=== PATIENT | female | born 1930 | race Caucasian/White ===

== ENCOUNTER 2018-01-19 03:09 | Inpatient (IN) ==
[2018-01-19] MEDS ORDERED: Heparin 10,000 UNITS/10 ML Vial (for IV use) IV.PUSH STA (03:56)
[2018-01-19] MEDS ORDERED: Metoprolol Tartrate 50 MG Tablet PO ONE (03:56)
--- NOTE | 2018-01-19 04:05 | XR ---
EXAM DATE: 01/19/2018 3:47 AM EST AGE/SEX: 87 years / Female INDICATIONS: Chest pain starting today CLINICAL DATA: This is the patient's initial encounter. Patient reports that signs and symptoms have been present for 1 day and indicates a pain score of 8/10. MEDICAL/SURGICAL HISTORY: None. None. COMPARISON: No prior exams available for comparison. FINDINGS: Portable AP view of the chest demonstrates a normal-sized cardiac silhouette with calcification of th e aorta. Lungs are underinflated. No effusion, consolidation, or pneumothorax is present. There is sy mmetric mild biapical scar. The bones and soft tissues demonstrate no acute finding. Bones are under mineralized. CONCLUSION: No acute cardiopulmonary abnormality is identified. Electronically signed by: Calderon Perez MD 01/19/2018 4:04 AM EST
--- NOTE | 2018-01-19 04:08 | ED ---
HPI General Chief complaint: Chest Pain Stated complaint: Left Flank Pain Time Seen by Provider: 01/19/18 03:16 Source: patient Mode of arrival: EMS Limitations: no limitations History of Present Illness HPI narrative: 87-year-old female came to the emergency room brought in by EMS for left-sided pain. When I asked the patient she said that she has been unable to sleep because of the pain and she pointed to the left side of her chest and said that it radiates down her left arm. Patient is in pain currently. She seems uncomfortable. Vital signs were relatively stable. No history of nausea vomiting. No history of diaphoresis, shortness of breath or syncopal episode. Patient is not the best historian and is difficult to get too much of detailed history from her like the exact time of onset and aggravating or relieving symptoms. Related Data Home Medications Medication Instructions Recorded Confirmed aspirin 81 mg PO DAILY 01/19/18 01/19/18 metoprolol succinate 12.5 mg PO BID 01/19/18 01/19/18 olopatadine 1 drp OPHTHALMIC (EYE) BID 01/19/18 01/19/18 sennosides [Senexon] 8.6 mg PO BID 01/19/18 01/19/18 Previous Rx's Medication Instructions Recorded Lactobacillus acidophilus 500 mmu cells PO TID #14 cap 01/22/18 atorvastatin [Lipitor] 10 mg PO DAILY #30 tab 01/22/18 cefdinir 300 mg PO BID 4 Days #8 cap 01/22/18 Allergies Allergy/AdvReac Type Severity Reaction Status Date / Time No Known Allergies Allergy Verified 01/19/18 03:12 Review of Systems ROS: all other systems reviewed are negative [facility] Medical History Medical History Broken hip (Acute) Medical history unknown (Acute) Surgical history unknown (Acute) Social History Social History Substance History: No History of Abuse Second Hand Smoke Exposure: No Smoking Status: Never smoker How Often Do You Have a Drink Containing Alcohol: Never Recent Travel in [facility] within the Last 8 Weeks: No Recent Out of Country Travel within the Last 8 Weeks: No Immunization History Tetanus Immunization: >5 Years Exam Narrative Exam Narrative: GENERAL: Awake, alert, anxious, moderate distress, elderly and frail SKIN: Focused skin assessment warm/dry. HEAD: Atraumatic. Normocephalic. EYES: Pupils equal and round. No scleral icterus. No injection or drainage. Bilateral medial [place] ectropion ENT: No nasal bleeding or discharge. Mucous membranes pink and moist. NECK: Trachea midline. No JVD. CARDIOVASCULAR: Regular rate and rhythm. No murmur appreciated. RESPIRATORY: No accessory muscle use. Clear to auscultation. Breath sounds equal bilaterally. GASTROINTESTINAL: Abdomen soft, non-tender, nondistended. Hepatic and splenic margins not palpable. MUSCULOSKELETAL: No obvious deformities. No clubbing. No cyanosis. No edema. NEUROLOGICAL: Awake and alert. No obvious cranial nerve deficits. Motor grossly within normal limits. Normal speech. PSYCHIATRIC: Appropriate mood and affect; insight and judgment normal. Course Initial Documented Vital Signs Temperature 99.3 F 01/19/18 03:12 Pulse Rate 98 H 01/19/18 03:12 Respiratory Rate 16 01/19/18 03:12 Blood Pressure 115/74 01/19/18 03:12 Pulse Oximetry 98 01/19/18 03:12 Last Documented Vital Signs Temperature 98.5 F 01/22/18 11:04 Pulse Rate 70 01/22/18 11:04 Respiratory Rate 18 01/22/18 11:04 Blood Pressure 133/70 01/22/18 11:04 Pulse Oximetry 97 01/22/18 11:04 Medical Decision Making MDM Narrative Medical decision making narrative: 4:05 AM I discussed case with Dr. Carmona since the EKG looked abnormal to me. However as per Dr. Carmona not to call a STEMI alert but to go ahead and start the patient on heparin drip and bolus. He also wanted p.o. beta-mamie and aspirin. Nitro was not given to the patient says the blood pressure is 111/60. He wants the patient to be transferred to the main hospital. Waiting for the blood test results. 5 AM blood test results are back and d-dimer is elevated. The troponin is within acceptable limits. Patient has been heparinized with a bolus that should cover for a possible PE. UA suggestive of a UTI and patient has been given IV Rocephin. I discussed the case with the hospitalist JEF. Patient will be transferred to the main hospital. Medical Screen Exam Complete: Yes Emergency Medical Condition: Yes Lab Data Result diagrams: 01/22/18 04:17 01/20/18 05:51 Lab Results 01/19/18 01/19/18 01/19/18 Range/Units 04:00 04:00 04:00 CBC w Diff Auto diff final WBC 5.9 (4.0-11.0) th/mm3 RBC 3.97 L (4.00-5.30) mil/mm3 Hgb 11.8 (11.6-15.3) gm/dL Hct 36.2 (35.0-46.0) % MCV 91.0 (80.0-100.0) fL MCH 29.7 (27.0-34.0) pg MCHC 32.7 (32.0-36.0) % RDW 13.8 (11.6-17.2) % Plt Count 192 (150-450) th/mm3 MPV 7.9 (7.0-11.0) fL Neut % (Auto) 74.0 H (16.0-70.0) % Lymph % (Auto) 15.5 (9.0-44.0) % [place] % (Auto) 9.4 H (0.0-8.0) % Eos % (Auto) 0.6 (0.0-4.0) % Baso % (Auto) 0.5 (0.0-2.0) % Neut # (Auto) 4.4 (1.8-7.7) th/mm3 Lymph # (Auto) 0.9 L (1.0-4.8) th/mm3 [place] # (Auto) 0.6 (0.0-0.9) th/mm3 Eos # (Auto) 0.0 (0.0-0.4) th/mm3 Baso # (Auto) 0.0 (0.0-0.2) th/mm3 WBC Differential . Differential Comment . PT (9.8-11.6) sec INR Ratio APTT (23.4-31.7) sec D-Dimer Quant (PE/DVT) 2.09 H (0.00-0.50) mg/L FEU Sodium 141 (136-145) meq/L Potassium 4.0 (3.5-5.1) meq/L Chloride 107 (98-107) meq/L Carbon Dioxide 29.0 (21.0-32.0) meq/L Anion Gap 5 (5-15) meq/L BUN 15 (7-18) mg/dL Creatinine 0.54 (0.50-1.00) mg/dL Estimated GFR Greater than 89 (>89) mL/min Random Glucose 101 (74-106) mg/dL Calcium 8.6 (8.5-10.1) mg/dL Total Bilirubin 0.6 (0.2-1.0) mg/dL AST 18 (15-37) U/L ALT 14 (10-53) U/L Alkaline Phosphatase 83 (45-117) U/L Total Creatine Kinase (26-192) U/L Troponin I Less than 0.02 L (0.02-0.05) ng/mL Total Protein 6.5 (6.4-8.2) g/dL Albumin 2.9 L (3.4-5.0) g/dL Urine Color (Yellw/Straw) Urine Clarity (Clear) Urine pH (5.0-8.5) Ur Specific [place] (1.002-1.035) Urine Protein (Neg-Trace) mg/dL Urine Glucose (UA) (Negative) mg/dL Urine Ketones (Negative) mg/dL Urine Occult Blood (Negative) Urine Nitrate (Negative) Urine Bilirubin (Negative) Urine Urobilinogen (Less than 2) mg/dL Ur Leukocyte Esterase (Negative) Urine RBC (0-3) /hpf Urine WBC (0-5) /hpf Urine WBC Clumps (None) Ur Squamous Epith Cells (0-5) /hpf Amorphous Sediment (None) /hpf Urine Bacteria (None) /hpf Micro UA Comment Ur Microscopic Review 01/19/18 01/19/18 01/19/18 Range/Units 04:00 04:29 10:38 CBC w Diff WBC (4.0-11.0) th/mm3 RBC (4.00-5.30) mil/mm3 Hgb (11.6-15.3) gm/dL Hct (35.0-46.0) % MCV (80.0-100.0) fL MCH (27.0-34.0) pg MCHC (32.0-36.0) % RDW (11.6-17.2) % Plt Count (150-450) th/mm3 MPV (7.0-11.0) fL Neut % (Auto) (16.0-70.0) % Lymph % (Auto) (9.0-44.0) % [place] % (Auto) (0.0-8.0) % Eos % (Auto) (0.0-4.0) % Baso % (Auto) (0.0-2.0) % Neut # (Auto) (1.8-7.7) th/mm3 Lymph # (Auto) (1.0-4.8) th/mm3 [place] # (Auto) (0.0-0.9) th/mm3 Eos # (Auto) (0.0-0.4) th/mm3 Baso # (Auto) (0.0-0.2) th/mm3 WBC Differential Differential Comment PT 10.2 (9.8-11.6) sec INR 1.0 Ratio APTT 29.7 (23.4-31.7) sec D-Dimer Quant (PE/DVT) (0.00-0.50) mg/L FEU Sodium (136-145) meq/L Potassium (3.5-5.1) meq/L Chloride (98-107) meq/L Carbon Dioxide (21.0-32.0) meq/L Anion Gap (5-15) meq/L BUN (7-18) mg/dL Creatinine (0.50-1.00) mg/dL Estimated GFR (>89) mL/min Random Glucose (74-106) mg/dL Calcium (8.5-10.1) mg/dL Total Bilirubin (0.2-1.0) mg/dL AST (15-37) U/L ALT (10-53) U/L Alkaline Phosphatase (45-117) U/L Total Creatine Kinase 54 (26-192) U/L Troponin I Less than 0.02 L (0.02-0.05) ng/mL Total Protein (6.4-8.2) g/dL Albumin (3.4-5.0) g/dL Urine Color Yellow (Yellw/Straw) Urine Clarity Clear (Clear) Urine pH 6.0 (5.0-8.5) Ur Specific [place] 1.020 (1.002-1.035) Urine Protein Negative (Neg-Trace) mg/dL Urine Glucose (UA) Negative (Negative) mg/dL Urine Ketones Negative (Negative) mg/dL Urine Occult Blood Trace (Negative) Urine Nitrate Negative (Negative) Urine Bilirubin Negative (Negative) Urine Urobilinogen 0.2 (Less than 2) mg/dL Ur Leukocyte Esterase Moderate H (Negative) Urine RBC 0-3 (0-3) /hpf Urine WBC 9-20 H (0-5) /hpf Urine WBC Clumps Few H (None) Ur Squamous Epith Cells 0-5 (0-5) /hpf Amorphous Sediment Moderate H (None) /hpf Urine Bacteria Occasional H (None) /hpf Micro UA Comment Cath-culture ind Ur Microscopic Review Microscopic reviewed 01/19/18 01/19/18 01/19/18 Range/Units 10:38 16:55 16:55 CBC w Diff WBC (4.0-11.0) th/mm3 RBC (4.00-5.30) mil/mm3 Hgb (11.6-15.3) gm/dL Hct (35.0-46.0) % MCV (80.0-100.0) fL MCH (27.0-34.0) pg MCHC (32.0-36.0) % RDW (11.6-17.2) % Plt Count (150-450) th/mm3 MPV (7.0-11.0) fL Neut % (Auto) (16.0-70.0) % Lymph % (Auto) (9.0-44.0) % [place] % (Auto) (0.0-8.0) % Eos % (Auto) (0.0-4.0) % Baso % (Auto) (0.0-2.0) % Neut # (Auto) (1.8-7.7) th/mm3 Lymph # (Auto) (1.0-4.8) th/mm3 [place] # (Auto) (0.0-0.9) th/mm3 Eos # (Auto) (0.0-0.4) th/mm3 Baso # (Auto) (0.0-0.2) th/mm3 WBC Differential Differential Comment PT (9.8-11.6) sec INR Ratio APTT 65.0 H D 67.1 H (23.4-31.7) sec D-Dimer Quant (PE/DVT) (0.00-0.50) mg/L FEU Sodium (136-145) meq/L Potassium (3.5-5.1) meq/L Chloride (98-107) meq/L Carbon Dioxide (21.0-32.0) meq/L Anion Gap (5-15) meq/L BUN (7-18) mg/dL Creatinine (0.50-1.00) mg/dL Estimated GFR (>89) mL/min Random Glucose (74-106) mg/dL Calcium (8.5-10.1) mg/dL Total Bilirubin (0.2-1.0) mg/dL AST (15-37) U/L ALT (10-53) U/L Alkaline Phosphatase (45-117) U/L Total Creatine Kinase (26-192) U/L Troponin I Less than 0.02 L (0.02-0.05) ng/mL Total Protein (6.4-8.2) g/dL Albumin (3.4-5.0) g/dL Urine Color (Yellw/Straw) Urine Clarity (Clear) Urine pH (5.0-8.5) Ur Specific [place] (1.002-1.035) Urine Protein (Neg-Trace) mg/dL Urine Glucose (UA) (Negative) mg/dL Urine Ketones (Negative) mg/dL Urine Occult Blood (Negative) Urine Nitrate (Negative) Urine Bilirubin (Negative) Urine Urobilinogen (Less than 2) mg/dL Ur Leukocyte Esterase (Negative) Urine RBC (0-3) /hpf Urine WBC (0-5) /hpf Urine WBC Clumps (None) Ur Squamous Epith Cells (0-5) /hpf Amorphous Sediment (None) /hpf Urine Bacteria (None) /hpf Micro UA Comment Ur Microscopic Review 01/20/18 01/20/18 01/20/18 Range/Units 05:51 05:51 05:51 CBC w Diff WBC 5.0 (4.0-11.0) th/mm3 RBC 3.76 L (4.00-5.30) mil/mm3 Hgb 11.3 L (11.6-15.3) gm/dL Hct 34.5 L (35.0-46.0) % MCV 91.7 (80.0-100.0) fL MCH 30.2 (27.0-34.0) pg MCHC 32.9 (32.0-36.0) % RDW 14.1 (11.6-17.2) % Plt Count 180 (150-450) th/mm3 MPV 7.5 (7.0-11.0) fL Neut % (Auto) 63.3 (16.0-70.0) % Lymph % (Auto) 25.0 (9.0-44.0) % [place] % (Auto) 10.6 H (0.0-8.0) % Eos % (Auto) 0.5 (0.0-4.0) % Baso % (Auto) 0.6 (0.0-2.0) % Neut # (Auto) 3.1 (1.8-7.7) th/mm3 Lymph # (Auto) 1.2 (1.0-4.8) th/mm3 [place] # (Auto) 0.5 (0.0-0.9) th/mm3 Eos # (Auto) 0.0 (0.0-0.4) th/mm3 Baso # (Auto) 0.0 (0.0-0.2) th/mm3 WBC Differential . Differential Comment Auto diff final PT (9.8-11.6) sec INR Ratio APTT 61.1 H (23.4-31.7) sec D-Dimer Quant (PE/DVT) (0.00-0.50) mg/L FEU Sodium 140 (136-145) meq/L Potassium 3.8 (3.5-5.1) meq/L Chloride 108 H (98-107) meq/L Carbon Dioxide 27.1 (21.0-32.0) meq/L Anion Gap 5 (5-15) meq/L BUN 13 (7-18) mg/dL Creatinine 0.52 (0.50-1.00) mg/dL Estimated GFR Greater than 89 (>89) mL/min Random Glucose 89 (74-106) mg/dL Calcium 8.5 (8.5-10.1) mg/dL Total Bilirubin (0.2-1.0) mg/dL AST (15-37) U/L ALT (10-53) U/L Alkaline Phosphatase (45-117) U/L Total Creatine Kinase (26-192) U/L Troponin I (0.02-0.05) ng/mL Total Protein (6.4-8.2) g/dL Albumin (3.4-5.0) g/dL Urine Color (Yellw/Straw) Urine Clarity (Clear) Urine pH (5.0-8.5) Ur Specific [place] (1.002-1.035) Urine Protein (Neg-Trace) mg/dL Urine Glucose (UA) (Negative) mg/dL Urine Ketones (Negative) mg/dL Urine Occult Blood (Negative) Urine Nitrate (Negative) Urine Bilirubin (Negative) Urine Urobilinogen (Less than 2) mg/dL Ur Leukocyte Esterase (Negative) Urine RBC (0-3) /hpf Urine WBC (0-5) /hpf Urine WBC Clumps (None) Ur Squamous Epith Cells (0-5) /hpf Amorphous Sediment (None) /hpf Urine Bacteria (None) /hpf Micro UA Comment Ur Microscopic Review 01/21/18 01/21/18 01/22/18 Range/Units 06:37 06:37 04:17 CBC w Diff WBC 3.7 L 2.7 L (4.0-11.0) th/mm3 RBC 3.75 L 3.85 L (4.00-5.30) mil/mm3 Hgb 11.6 11.7 (11.6-15.3) gm/dL Hct 33.9 L 35.3 (35.0-46.0) % MCV 90.4 91.7 (80.0-100.0) fL MCH 30.8 30.4 (27.0-34.0) pg MCHC 34.1 33.2 (32.0-36.0) % RDW 14.0 13.8 (11.6-17.2) % Plt Count 193 207 (150-450) th/mm3 MPV 8.4 7.7 (7.0-11.0) fL Neut % (Auto) (16.0-70.0) % Lymph % (Auto) (9.0-44.0) % [place] % (Auto) (0.0-8.0) % Eos % (Auto) (0.0-4.0) % Baso % (Auto) (0.0-2.0) % Neut # (Auto) (1.8-7.7) th/mm3 Lymph # (Auto) (1.0-4.8) th/mm3 [place] # (Auto) (0.0-0.9) th/mm3 Eos # (Auto) (0.0-0.4) th/mm3 Baso # (Auto) (0.0-0.2) th/mm3 WBC Differential Differential Comment PT (9.8-11.6) sec INR Ratio APTT 51.6 H (23.4-31.7) sec D-Dimer Quant (PE/DVT) (0.00-0.50) mg/L FEU Sodium (136-145) meq/L Potassium (3.5-5.1) meq/L Chloride (98-107) meq/L Carbon Dioxide (21.0-32.0) meq/L Anion Gap (5-15) meq/L BUN (7-18) mg/dL Creatinine (0.50-1.00) mg/dL Estimated GFR (>89) mL/min Random Glucose (74-106) mg/dL Calcium (8.5-10.1) mg/dL Total Bilirubin (0.2-1.0) mg/dL AST (15-37) U/L ALT (10-53) U/L Alkaline Phosphatase (45-117) U/L Total Creatine Kinase (26-192) U/L Troponin I (0.02-0.05) ng/mL Total Protein (6.4-8.2) g/dL Albumin (3.4-5.0) g/dL Urine Color (Yellw/Straw) Urine Clarity (Clear) Urine pH (5.0-8.5) Ur Specific [place] (1.002-1.035) Urine Protein (Neg-Trace) mg/dL Urine Glucose (UA) (Negative) mg/dL Urine Ketones (Negative) mg/dL Urine Occult Blood (Negative) Urine Nitrate (Negative) Urine Bilirubin (Negative) Urine Urobilinogen (Less than 2) mg/dL Ur Leukocyte Esterase (Negative) Urine RBC (0-3) /hpf Urine WBC (0-5) /hpf Urine WBC Clumps (None) Ur Squamous Epith Cells (0-5) /hpf Amorphous Sediment (None) /hpf Urine Bacteria (None) /hpf Micro UA Comment Ur Microscopic Review 01/22/18 Range/Units 04:17 CBC w Diff WBC (4.0-11.0) th/mm3 RBC (4.00-5.30) mil/mm3 Hgb (11.6-15.3) gm/dL Hct (35.0-46.0) % MCV (80.0-100.0) fL MCH (27.0-34.0) pg MCHC (32.0-36.0) % RDW (11.6-17.2) % Plt Count (150-450) th/mm3 MPV (7.0-11.0) fL Neut % (Auto) (16.0-70.0) % Lymph % (Auto) (9.0-44.0) % [place] % (Auto) (0.0-8.0) % Eos % (Auto) (0.0-4.0) % Baso % (Auto) (0.0-2.0) % Neut # (Auto) (1.8-7.7) th/mm3 Lymph # (Auto) (1.0-4.8) th/mm3 [place] # (Auto) (0.0-0.9) th/mm3 Eos # (Auto) (0.0-0.4) th/mm3 Baso # (Auto) (0.0-0.2) th/mm3 WBC Differential Differential Comment PT (9.8-11.6) sec INR Ratio APTT 31.6 D (23.4-31.7) sec D-Dimer Quant (PE/DVT) (0.00-0.50) mg/L FEU Sodium (136-145) meq/L Potassium (3.5-5.1) meq/L Chloride (98-107) meq/L Carbon Dioxide (21.0-32.0) meq/L Anion Gap (5-15) meq/L BUN (7-18) mg/dL Creatinine (0.50-1.00) mg/dL Estimated GFR (>89) mL/min Random Glucose (74-106) mg/dL Calcium (8.5-10.1) mg/dL Total Bilirubin (0.2-1.0) mg/dL AST (15-37) U/L ALT (10-53) U/L Alkaline Phosphatase (45-117) U/L Total Creatine Kinase (26-192) U/L Troponin I (0.02-0.05) ng/mL Total Protein (6.4-8.2) g/dL Albumin (3.4-5.0) g/dL Urine Color (Yellw/Straw) Urine Clarity (Clear) Urine pH (5.0-8.5) Ur Specific [place] (1.002-1.035) Urine Protein (Neg-Trace) mg/dL Urine Glucose (UA) (Negative) mg/dL Urine Ketones (Negative) mg/dL Urine Occult Blood (Negative) Urine Nitrate (Negative) Urine Bilirubin (Negative) Urine Urobilinogen (Less than 2) mg/dL Ur Leukocyte Esterase (Negative) Urine RBC (0-3) /hpf Urine WBC (0-5) /hpf Urine WBC Clumps (None) Ur Squamous Epith Cells (0-5) /hpf Amorphous Sediment (None) /hpf Urine Bacteria (None) /hpf Micro UA Comment Ur Microscopic Review Imaging Data Radiologist's impression: Venous Doppler Study 01/19/18 00:00 CONCLUSION: 1. No evidence of DVT. Chest X-Ray 01/19/18 03:28 CONCLUSION: No acute cardiopulmonary abnormality is identified. ECG Data Attestation: I personally reviewed and interpreted this ECG as follows: Interpretation: Twelve-lead EKG was reviewed by me. Normal sinus rhythm, left axis deviation, right bundle branch block, ST elevation in the septal leads. Heart rate of 64 bpm Discharge Plan Discharge Disposition Patient Disposition: 30 Still Patient Discharge Condition Condition: Stable Discharge Order Discharge Orders: Discharge Order (Routine); Ordered 01/22/18 Ordered By: Vinod Duarte ED Use Only Admit Order (Routine); Ordered 01/19/18 Ordered By: Nora Cantu Discharge Details Anticipated Discharge Date: 01/22/18 Physicians Team ED Provider: Nora Cantu Primary Care Provider: UNKNOWN, Attending Provider: Vinod Duarte Other Providers: Tushar Carmona Status ED Status: Left Department Discharge Information Discharge Date/Time: 01/19/18 08:35
[2018-01-19 04:11] LABS: Baso % (Auto) 0.5 % (0.0-2.0); Eos % (Auto) 0.6 % (0.0-4.0); Hematocrit 36.2 % (35.0-46.0); Hemoglobin 11.8 gm/dL (11.6-15.3); Lymph # (Auto) 0.9 th/mm3 (1.0-4.8); Lymph % (Auto) 15.5 % (9.0-44.0); Mean Corpuscular HGB Conc 32.7 % (32.0-36.0); Mean Corpuscular Hemoglobin 29.7 pg (27.0-34.0); Mean Platelet Volume 7.9 fL (7.0-11.0); Mono # (Auto) 0.6 th/mm3 (0.0-0.9); Mono % (Auto) 9.4 % (0.0-8.0); Neut # (Auto) 4.4 th/mm3 (1.8-7.7); Platelet Count 192 th/mm3 (150-450); Red Blood Count 3.97 mil/mm3 (4.00-5.30); Red Cell Distribution Width 13.8 % (11.6-17.2); White Blood Count 5.9 th/mm3 (4.0-11.0)
[2018-01-19 04:18] LABS: Chloride 107 meq/L (98-107); Sodium 141 meq/L (136-145)
[2018-01-19 04:21] LABS: Calcium 8.6 mg/dL (8.5-10.1)
[2018-01-19 04:22] LABS: Albumin 2.9 g/dL (3.4-5.0); Anion Gap 5 meq/L (5-15); Blood Urea Nitrogen 15 mg/dL (7-18); Glucose,Random 101 mg/dL (74-106)
[2018-01-19 04:25] LABS: Alanine Aminotransferase 14 U/L (10-53); Aspartate Aminotransferase 18 U/L (15-37); Glomerular Filtration Rate Greater Than 89 mL/min (>89)
[2018-01-19 04:26] LABS: Total Protein 6.5 g/dL (6.4-8.2)
[2018-01-19 04:28] LABS: Alkaline Phosphatase 83 U/L (45-117)
[2018-01-19 04:39] LABS: Activated Partial Thrombo Time 29.7 sec (23.4-31.7); Prothrombin Time 10.2 sec (9.8-11.6)
[2018-01-19 04:47] LABS: Bilirubin,Urine Negative (Negative); Clarity,Urine Clear (Clear); Color,Urine Yellow (Yellw/Straw); Glucose,Urine (UA) Negative (Negative); Leukocyte Esterase,Urine Moderate (Negative); Nitrite,Urine Negative (Negative); Urobilinogen,Urine 0.2 mg/dL (Less than 2)
[2018-01-19 04:54] LABS: Amorphous Sediment,Urine Moderate /hpf; Bacteria,Urine Occasional /hpf; RBC,Urine 0-3 /hpf (0-3); Squamous Epithelial Cell,Urine 0-5 /hpf (0-5)
[2018-01-19] MEDS ORDERED: Morphine Inj 4 MG/ML Vial IV.PUSH PRN (04:56)
[2018-01-19] MEDS ORDERED: Acetaminophen 500 MG Tablet PO PRN (04:56)
[2018-01-19] MEDS: Heparin Drip 25,000 UNIT/250 ML BAG IV.CONT PRN (05:21)
[2018-01-19] MEDS ORDERED: Sodium Chlor 0.9% Inj 500 ML IV.SIG SCH (06:00)
[2018-01-19] MEDS ORDERED: Morphine Inj 4 MG/ML Vial IV.PUSH ONE (08:20)
--- NOTE | 2018-01-19 08:35 | P.HPIM ---
History of Present Illness Primary Care Physician: UNKNOWN Patient is a very pleasant 87-year-old female with past medical history of hypertension presenting to emergency department after experiencing acute onset left-sided chest pain. Pain started 2 AM prior to presentation to emergency department and progressively worsened prompting ED evaluation. Pain is a sharp , 9/10, pleuritic left-sided chest pain not alleviated by rest and aggravated with deep breathing. Pain radiated to left armpit and patient denied that it went down her arm or up to her jaw. This is the first time the patient has had a episode like this. Patient denies trauma. Patient denied burning sensation in chest or reflux-like symptoms. Patient denied noticing rash over chest wall. Patient has never had a myocardial infarction in the past. Patient denied recent illness including cough, fever, or chills. Patient reports that during episode she experienced shortness of breath and a warm sensation. Patient on review of systems denied palpitations, diaphoresis, or loss of consciousness. Patient denied hemoptysis Of note patient was found to have slightly dysarthric speech. As per power of divorce attorney and patient she had a fall approximately 1 year ago and was hospitalized at an outside facility and developed this symptom afterwards. Patient and family say that they were told during hospitalization that this was not a stroke and she was sent to rehab and has had the symptoms since. Family is unsure exactly what the diagnosis was leading to this speech. Patient previously had been placed on a thickened liquid diet but has been eating more since she recently moved to [place] from [place] to live with Ed who is her power of divorce [phone]). In relation to her symptoms patient denied any weakness on one side of her body or change in strength. Patient denied headache or new changes in vision. Patient reports that her speech is currently at her baseline over the last year. In emergency department patient lab work initial troponin negative. EKG with septal wall changes. Cardiology consulted and patient started on heparin drip . D-dimer was found to be elevated.. Patient was also given aspirin 325 mg. Urinalysis concerning for possible UTI and patient was started on empiric ceftriaxone as an aside. Allergy: Bee sting, no known drug allergy Social history: Patient denied alcohol use, drug use, tobacco use, and lives with family Family history: Sister: 87-year-old female with Alzheimer's disease otherwise no history of coronary artery disease including hypertension, hyperlipidemia, or diabetes Surgical history: Left hip replacement Medications: See medication reconciliation Diagnosis (1) Chest pain: (2) ST segment changes on electrocardiogram: (3) Dysarthria: (4) Pleuritic chest pain: Inpatient Certification Inpatient Certification: I certify that the inpatient services were ordered in accordance with Medicare regulations governing the order. This includes certification that hospital inpatient services are reasonable and necessary and in the case of services not specified as inpatient-only under 42 CFR 419.22(n), that they are appropriately provided as inpatient services in accordance to with the 2-midnight benchmark under 43 CFR 412.3(e) Estimated Total Length of Stay (Days): 3 Plans for Post Hospital Care: Not yet determined Review of Systems Review of Systems: all other systems reviewed are negative [facility] Medical History Medical History Broken hip (Acute) Medical history unknown (Acute) Surgical history unknown (Acute) Social History Social History Substance History: No History of Abuse Smoking Status: Former smoker How Often Do You Have a Drink Containing Alcohol: Never Recent Travel in [place] within the Last 8 Weeks: No Recent Out of Country Travel within the Last 8 Weeks: No Immunization History Tetanus Immunization: >5 Years Medications and Allergies Allergies Allergy/AdvReac Type Severity Reaction Status Date / Time No Known Allergies Allergy Verified 01/19/18 03:12 Home Medications Medication Instructions Recorded Confirmed Type aspirin 81 mg PO DAILY 01/19/18 01/19/18 History metoprolol succinate 12.5 mg PO BID 01/19/18 01/19/18 History sennosides [Senexon] 8.6 mg PO BID 01/19/18 01/19/18 History Active Medications: Active Medications Acetaminophen (Tylenol) 500 mg PO Q4H PRN PRN Reason: HEADACHE Hydrocodone Bitart/Acetaminophen ([place] 7.5/325) 1 tab PO Q4H PRN PRN Reason: PAIN SCALE 1 TO 5 Last Admin: 01/19/18 07:35 Dose: 1 tab Aspirin (Aspirin) 325 mg PO DAILY [facility] Heparin Sodium/Dextrose (Heparin/D5w 25,000 U/250 Ml) 25,000 unit in 250 mls @ 0 mls/hr IV.CONT TITRATE PRN; Protocol PRN Reason: Per Protocol Last Admin: 01/19/18 05:21 Dose: 700 units/hr, 7 mls/hr Ceftriaxone Sodium 1,000 mg/ (Sodium Chloride) 100 mls @ 200 mls/hr IV.SIG Q24H [facility] Last Admin: 01/19/18 05:15 Dose: Not Given Metoprolol Succinate (Toprol Xl) 12.5 mg PO BID [facility] Morphine Sulfate (Morphine Inj) 2 mg IV.PUSH Q4H PRN PRN Reason: PAIN SCALE 6 TO 10 Nitroglycerin (Nitrostat Sl) 0.4 mg SL Q5M PRN PRN Reason: ANGINA Sennosides (Senokot) 8.6 mg PO BID [facility] Sodium Chloride (Ns Flush) 2 ml IV.FLUSH BID [facility] Sodium Chloride (Ns Flush) 2 ml IV.FLUSH PRN PRN PRN Reason: FLUSH AFTER USING IV ACCESS Physical Exam Vital signs: Last Vital Signs Temp 99.3 F 01/19/18 03:12 Pulse 63 01/19/18 06:00 Resp 16 01/19/18 06:00 BP 108/62 01/19/18 06:00 Pulse Ox 97 01/19/18 06:22 Intake & Output 01/17/18 01/18/18 01/19/18 01/20/18 06:59 06:59 06:59 06:59 Intake Total 600 / 600 Balance 600 / 600 Weight 61.235 kg General: No acute distress HEENT: EOMI, PERRLA Respiratory: Clear to auscultation. No intercostal muscle use. No wheezing appreciated Cardiovascular: S1/S2. No tachycardia Gastrointestinal: Soft, nontender, nondistended, no guarding or rebound appreciated. Positive bowel sounds Extremity: No asymmetric calf edema, minimal calf discomfort. 2+ radial pulse. Capillary refill less than 2 seconds Neurology: Slight drooping of face on right side with mild dysarthria. No tongue deviation. Sensation intact upper and lower extremity. Muscular skeletal: No evidence of costochondritis or reproducible chest wall pain with deep palpation Skin: No evidence of rash over chest wall Results Labs CBC & Chem 7: 01/19/18 04:00 01/19/18 04:00 Imaging Impressions Chest X-Ray 01/19/18 03:28 CONCLUSION: No acute cardiopulmonary abnormality is identified. Caprini VTE Risk Assessment Caprini VTE Risk Assessment: Moderate/High Risk (score >= 2) Caprini Risk Assessment Model: Point Value = 1 Point Value = 2 Point Value = 3 Point Value = 5 Age 41-60 Minor surgery BMI > 25 kg/m2 Swollen legs Varicose veins or History of unexplained or recurrent spontaneous Oral contraceptives or hormone replacement Sepsis (< 1 month) Serious lung disease, including pneumonia (< 1 month) Abnormal pulmonary function Acute myocardial infarction Congestive heart failure (< 1 month) History of inflammatory bowel disease Medical patient at bed rest Age 61-74 Arthroscopic surgery Major open surgery (> 45 min) Laparoscopic surgery (> 45 min) Malignancy Confined to bed (> 72 hours) Immobilizing plaster cast Central venous access Age >= 75 History of VTE Family history of VTE Factor V Leiden Prothrombin [id number] Lupus anticoagulant Anticardiolipin antibodies Elevated serum homocysteine Heparin-induced thrombocytopenia Other congenital or acquired thrombophilia Stroke (< 1 month) Elective arthroplasty Hip, pelvis, or leg fracture Acute spinal cord injury (< 1 month) Prophylaxis Regimen: Total Risk Factor Score Risk Level Prophylaxis Regimen 0-1 Low Early ambulation 2 Moderate Order ONE of the following: *Sequential Compression Device (SCD) *Heparin 5000 units SQ BID 3-4 Higher Order ONE of the following medications: *Heparin 5000 units SQ TID *Enoxaparin/Lovenox 40 mg SQ daily (WT < 150 kg, CrCl > 30 mL/min) *Enoxaparin/Lovenox 30 mg SQ daily (WT < 150 kg, CrCl > 10-29 mL/min) *Enoxaparin/Lovenox 30 mg SQ BID (WT < 150 kg, CrCl > 30 mL/min) AND/OR *Sequential Compression Device (SCD) 5 or more Highest Order ONE of the following medications: *Heparin 5000 units SQ TID (Preferred with Epidurals) *Enoxaparin/Lovenox 40 mg SQ daily (WT < 150 kg, CrCl > 30 mL/min) *Enoxaparin/Lovenox 30 mg SQ daily (WT < 150 kg, CrCl > 10-29 mL/min) *Enoxaparin/Lovenox 30 mg SQ BID (WT < 150 kg, CrCl > 30 mL/min) AND *Sequential Compression Device (SCD) Assessment and Plan (1) Chest pain: Code(s): R07.9 - Chest pain, unspecified Status: Acute (2) ST segment changes on electrocardiogram: Code(s): R94.31 - Abnormal electrocardiogram [ECG] [EKG] Status: Acute (3) Dysarthria: Code(s): R47.1 - Dysarthria and anarthria Status: Acute (4) Pleuritic chest pain: Code(s): R07.81 - Pleurodynia Status: Acute Plan Cardiology: Chest pain Chest pain appears to be pleuritic in nature, left-sided with elevated d-dimer concerning for possible pulmonary embolism. Will obtain lower externally Doppler ultrasound to rule out DVT Continue to trend troponin every 4-6 hours x3. Initial troponin negative Cardiology consulted and recommendations appreciated. Cardiology to follow Continue heparin drip and monitor PTT until therapeutic Continue aspirin 325 mg daily, metoprolol 12.5 mg p.o. twice daily when tolerating p.o. Morphine as needed pain. Titrate oxygen to maintain O2 saturation greater than 92% Chest x-ray reviewed and negative for acute pathology including pneumonia. EKG as needed chest pain Infectious disease: Urinary tract infection Continue ceftriaxone Telemetry antibiotics based on urinary culture results Patient CARE: Speech language pathology evaluation. Power of divorce attorney reports patient had previously taken thickened liquids Physical therapy evaluation Monitor patient as she may be a fall risk CODE STATUS: Full code DVT prophylaxis: Heparin drip Disposition: Patient currently in route to [facility] hospital. Patient briefly evaluated prior to transfer Diet: N.p.o. until evaluated by speech Plan of care discussed with patient and power of divorce attorney at the bedside Mr. Vásquez Phone number [phone]
[2018-01-19] MEDS: Aspirin 325 MG Tablet PO SCH (10:22)
[2018-01-19 12:11] LABS: Creatine Kinase 54 U/L (26-192)
--- NOTE | 2018-01-19 12:40 | US ---
EXAM DATE: 01/19/2018 12:37 PM EST AGE/SEX: 87 years / Female INDICATIONS: Elevated d-dimer. CLINICAL DATA: This is the patient's initial encounter. Patient reports that signs and symptoms have been present for 1 day and indicates a pain score of 0/10. MEDICAL/SURGICAL HISTORY: . Alzheimer's disease. Hypertension. . Left hip replacement. COMPARISON: No prior exams available for comparison. TECHNIQUE: Venous ultrasound of both lower extremities was performed from the inguinal ligament to t he proximal calf. Real-time, color Doppler and spectral tracing, compression and augmentation techni ques were used. FINDINGS: Right Leg: Normal compression of the deep venous system from the inguinal region to the proximal penny f. No echogenic clot is seen. Normal response of the venous system to augmentation and respiration. Left Leg: Normal compression of the deep venous system from the inguinal region to the proximal calf . No echogenic clot is seen. Normal response of the venous system to augmentation and respiration. Other: None. CONCLUSION: 1. No evidence of DVT. Electronically signed by: Dave Santana MD 01/19/2018 12:38 PM EST
--- NOTE | 2018-01-19 12:58 | MB ---
cc: Tushar Carmona MD DATE: 01/19/2018 HISTORY OF PRESENT ILLNESS: Adeola is a very pleasant 87-year-old lady who is a poor historian, seen in [place] ER this morning due to chest pain. I reviewed her EKG at approximately 4:30 a.m. It did not appear to have any acute ST-T wave changes. The patient appears to have a very flat affect, is a very poor historian. She speaks too softly to understand anything she is saying basically, so her history is obtained from the chart. Reportedly, she had left-sided chest pain radiating down the left arm. ALLERGIES: NONE. SOCIAL HISTORY: Former smoker. Denies alcohol use. MEDICATIONS: 1. Aspirin 325 daily. 2. Heparin IV. 3. Metoprolol 12.5 b.i.d. 4. Senokot. 5. Aspirin 324 x 1. 6. Ceftriaxone x 1. PHYSICAL EXAMINATION: VITAL SIGNS: Pulse 52, blood pressure 120/69, initially 84/52, temperature 97.8, respiratory rate 16, and saturations 100% on room air. GENERAL: She is awake, oriented, x 2-3, and in no acute distress. NECK: Supple. No JVD. No bruit. CARDIOVASCULAR: S1, S2. No murmurs, rubs, gallops. LUNGS: Clear to auscultation bilaterally. ABDOMEN: Soft, nontender, nondistended with positive bowel sounds. EXTREMITIES: No lower extremity edema. IMAGING STUDIES: Chest x-ray shows "no acute cardiopulmonary abnormalities identified." EKG is not in the computer. I was able to review it, however, and it shows a normal sinus rhythm with a right bundle branch block, left anterior fascicular block. LABORATORY DATA: White count 5.9, hemoglobin 11.8, hematocrit 36.2, platelet count 192. INR 1.0. Sodium 141, potassium 4.0, chloride 107, bicarbonate 29, BUN 15, creatinine 0.54. LFTs normal. Troponin less than 0.02. DIAGNOSES: 1. Unstable angina. 2. Advanced age. 3. Hypotension. 4. Bradycardia. DISCUSSION: At this point in time, the patient is being treated with beta mamie, aspirin, and heparin. I am not sure if she is actually consentable. Will need to follow her trend in troponin and symptoms. Further recommendations based on the trend in her troponin and symptoms, and will also check a 2-D echo. MD THOMAS Myers/hansel , 10:13 AM , 10:20 AM
[2018-01-20 06:10] LABS: Baso % (Auto) 0.6 % (0.0-2.0); Eos % (Auto) 0.5 % (0.0-4.0); Hematocrit 34.5 % (35.0-46.0); Hemoglobin 11.3 gm/dL (11.6-15.3); Lymph # (Auto) 1.2 th/mm3 (1.0-4.8); Mean Corpuscular HGB Conc 32.9 % (32.0-36.0); Mean Corpuscular Hemoglobin 30.2 pg (27.0-34.0); Mean Corpuscular Volume 91.7 fL (80.0-100.0); Mean Platelet Volume 7.5 fL (7.0-11.0); Mono # (Auto) 0.5 th/mm3 (0.0-0.9); Mono % (Auto) 10.6 % (0.0-8.0); Neut # (Auto) 3.1 th/mm3 (1.8-7.7); Neut % (Auto) 63.3 % (16.0-70.0); Platelet Count 180 th/mm3 (150-450); Red Blood Count 3.76 mil/mm3 (4.00-5.30); Red Cell Distribution Width 14.1 % (11.6-17.2)
[2018-01-20 06:36] LABS: Anion Gap 5 meq/L (5-15); Blood Urea Nitrogen 13 mg/dL (7-18); Calcium 8.5 mg/dL (8.5-10.1); Carbon Dioxide 27.1 meq/L (21.0-32.0); Chloride 108 meq/L (98-107); Glomerular Filtration Rate Greater Than 89 mL/min (>89); Glucose,Random 89 mg/dL (74-106); Potassium 3.8 meq/L (3.5-5.1); Sodium 140 meq/L (136-145)
[2018-01-20] MEDS: Aspirin 325 MG Tablet PO SCH (08:14)
--- NOTE | 2018-01-20 10:47 | P.PNCA ---
Subjective Interval history: assymptomatic in nad Medications and Allergies Active Medications: Active Medications Acetaminophen (Tylenol) 500 mg PO Q4H PRN PRN Reason: HEADACHE Hydrocodone Bitart/Acetaminophen ([place] 7.5/325) 1 tab PO Q4H PRN PRN Reason: PAIN SCALE 1 TO 5 Last Admin: 01/20/18 01:36 Dose: 1 tab Aspirin (Aspirin) 325 mg PO DAILY [facility] Last Admin: 01/20/18 08:14 Dose: 325 mg Heparin Sodium/Dextrose (Heparin/D5w 25,000 U/250 Ml) 25,000 unit in 250 mls @ 0 mls/hr IV.CONT TITRATE PRN; Protocol PRN Reason: Per Protocol Last Admin: 01/19/18 05:21 Dose: 700 units/hr, 7 mls/hr Ceftriaxone Sodium 1,000 mg/ (Sodium Chloride) 100 mls @ 200 mls/hr IV.SIG Q24H [facility] Last Admin: 01/20/18 07:02 Dose: 200 mls/hr Metoprolol Succinate (Toprol Xl) 12.5 mg PO BID [facility] Last Admin: 01/20/18 08:14 Dose: 12.5 mg Morphine Sulfate (Morphine Inj) 2 mg IV.PUSH Q4H PRN PRN Reason: PAIN SCALE 6 TO 10 Nitroglycerin (Nitrostat Sl) 0.4 mg SL Q5M PRN PRN Reason: ANGINA Sennosides (Senokot) 8.6 mg PO BID [facility] Last Admin: 01/20/18 08:14 Dose: 8.6 mg Sodium Chloride (Ns Flush) 2 ml IV.FLUSH BID [facility] Last Admin: 01/20/18 08:14 Dose: 2 ml Sodium Chloride (Ns Flush) 2 ml IV.FLUSH PRN PRN PRN Reason: FLUSH AFTER USING IV ACCESS Allergies Allergy/AdvReac Type Severity Reaction Status Date / Time No Known Allergies Allergy Verified 01/19/18 03:12 Home Medications Medication Instructions Recorded Confirmed Type aspirin 81 mg PO DAILY 01/19/18 01/19/18 History metoprolol succinate 12.5 mg PO BID 01/19/18 01/19/18 History olopatadine 1 drp OPHTHALMIC (EYE) BID 01/19/18 01/19/18 History sennosides [Senexon] 8.6 mg PO BID 01/19/18 01/19/18 History Physical Exam Vital signs: Vital Signs 01/19/18 11:00 01/19/18 12:00 01/19/18 13:00 Temperature 97.9 F Pulse Rate 54 L 46 L 50 L Respiratory Rate 16 Blood Pressure 130/50 L Pulse Oximetry 100 01/19/18 14:00 01/19/18 15:00 01/19/18 16:00 Temperature 97.7 F Pulse Rate 62 55 L 50 L Respiratory Rate 16 Blood Pressure 106/57 L Pulse Oximetry 100 01/19/18 16:03 01/19/18 17:00 01/19/18 18:00 Temperature Pulse Rate 62 63 Respiratory Rate Blood Pressure Pulse Oximetry 100 01/19/18 19:00 01/19/18 20:00 01/19/18 20:02 Temperature 98.1 F Pulse Rate 57 L 86 Respiratory Rate 16 Blood Pressure 142/65 H Pulse Oximetry 100 100 01/19/18 21:00 01/19/18 22:00 01/19/18 23:00 Temperature 99.1 F Pulse Rate 90 72 77 Respiratory Rate 20 Blood Pressure 127/58 L Pulse Oximetry 96 01/20/18 00:00 01/20/18 01:00 01/20/18 02:00 Temperature Pulse Rate 70 76 72 Respiratory Rate Blood Pressure Pulse Oximetry 01/20/18 03:00 01/20/18 04:00 01/20/18 05:00 Temperature 97.5 F L Pulse Rate 63 63 87 Respiratory Rate 16 Blood Pressure 100/48 L Pulse Oximetry 99 01/20/18 06:00 01/20/18 07:00 01/20/18 08:00 Temperature 97.9 F Pulse Rate 65 60 Respiratory Rate 16 Blood Pressure 123/53 L Pulse Oximetry 93 L 93 L Intake & Output 01/19/18 01/20/18 01/20/18 18:59 06:59 18:59 Intake Total 240 / 240 Output Total 250 / 250 Balance -10 / -10 Intake: Oral 240 / 240 Output: Urine 250 / 250 - Constitutional no acute distress - Routine Neck Exam Present: supple - Routine Respiratory Exam Present: CTA bilaterally - Routine Cardiovascular Exam Present: S1, S2 - Routine Abdominal Exam Present: soft - Routine Extremities Exam Comments: no annmarie - Urinary Catheter Management Straight Cath placed during this visit: yes Reason for continuing: Not indwelling catheter Insertion date: 01/19/18 Insertion time: 04:38 Results 01/20/18 05:51 01/20/18 05:51 Cardiac Enzymes 01/19/18 01/19/18 01/19/18 Range/Units 04:00 10:38 16:55 AST 18 (15-37) U/L Troponin I Less than 0.02 L Less than 0.02 L Less than 0.02 L (0.02-0.05) ng/mL Coagulation 01/19/18 01/19/18 01/19/18 Range/Units 04:00 10:38 16:55 PT 10.2 (9.8-11.6) sec APTT 29.7 65.0 H D 67.1 H (23.4-31.7) sec 01/20/18 Range/Units 05:51 PT (9.8-11.6) sec APTT 61.1 H (23.4-31.7) sec CBC 01/19/18 01/20/18 Range/Units 04:00 05:51 WBC 5.9 5.0 (4.0-11.0) th/mm3 RBC 3.97 L 3.76 L (4.00-5.30) mil/mm3 Hgb 11.8 11.3 L (11.6-15.3) gm/dL Hct 36.2 34.5 L (35.0-46.0) % Plt Count 192 180 (150-450) th/mm3 Neut # (Auto) 4.4 3.1 (1.8-7.7) th/mm3 Lymph # (Auto) 0.9 L 1.2 (1.0-4.8) th/mm3 [place] # (Auto) 0.6 0.5 (0.0-0.9) th/mm3 Eos # (Auto) 0.0 0.0 (0.0-0.4) th/mm3 Baso # (Auto) 0.0 0.0 (0.0-0.2) th/mm3 Comprehensive Metabolic Panel 01/19/18 01/20/18 Range/Units 04:00 05:51 Sodium 141 140 (136-145) meq/L Potassium 4.0 3.8 (3.5-5.1) meq/L Chloride 107 108 H (98-107) meq/L Carbon Dioxide 29.0 27.1 (21.0-32.0) meq/L BUN 15 13 (7-18) mg/dL Creatinine 0.54 0.52 (0.50-1.00) mg/dL Calcium 8.6 8.5 (8.5-10.1) mg/dL AST 18 (15-37) U/L ALT 14 (10-53) U/L Alkaline Phosphatase 83 (45-117) U/L Total Protein 6.5 (6.4-8.2) g/dL Albumin 2.9 L (3.4-5.0) g/dL Intake and Output 01/19/18 01/20/18 01/20/18 22:59 06:59 14:59 Intake Total 240 / 240 Output Total 250 / 250 Balance - -10 Intake: Oral 240 / 240 Output: Urine 250 / 250 - Imaging and Cardiology Imaging: Impressions Venous Doppler Study 01/19/18 00:00 CONCLUSION: 1. No evidence of DVT. Chest X-Ray 01/19/18 03:28 CONCLUSION: No acute cardiopulmonary abnormality is identified. Assessment and Plan - Assessment (1) Unstable angina Code(s): I20.0 - Unstable angina Status: Acute (2) ST segment changes on electrocardiogram Code(s): R94.31 - Abnormal electrocardiogram [ECG] [EKG] Status: Acute (3) Chest pain Code(s): R07.9 - Chest pain, unspecified Status: Acute - Plan 1.) [place] - assymptomatic, trop neg, continue aspirin, toprol, dc heparin, rec lhc , will d/w poa, d/w nurse
--- NOTE | 2018-01-20 11:12 | P.PN ---
Subjective Interval history: telemetry- in SR seen with nephew at bedside patient awake and alert, interactive but slow speech they just mvoed done here currently no chest pain or shortness of breath states at home eats- regular consistency food Physical Exam Vital signs: Vital Signs 01/19/18 12:00 01/19/18 13:00 01/19/18 14:00 Temperature Pulse Rate 46 L 50 L 62 Respiratory Rate Blood Pressure Pulse Oximetry 01/19/18 15:00 01/19/18 16:00 01/19/18 16:03 Temperature 97.7 F Pulse Rate 55 L 50 L Respiratory Rate 16 Blood Pressure 106/57 L Pulse Oximetry 100 100 01/19/18 17:00 01/19/18 18:00 01/19/18 19:00 Temperature 98.1 F Pulse Rate 62 63 57 L Respiratory Rate 16 Blood Pressure 142/65 H Pulse Oximetry 100 01/19/18 20:00 01/19/18 20:02 01/19/18 21:00 Temperature Pulse Rate 86 90 Respiratory Rate Blood Pressure Pulse Oximetry 100 01/19/18 22:00 01/19/18 23:00 01/20/18 00:00 Temperature 99.1 F Pulse Rate 72 77 70 Respiratory Rate 20 Blood Pressure 127/58 L Pulse Oximetry 96 01/20/18 01:00 01/20/18 02:00 01/20/18 03:00 Temperature 97.5 F L Pulse Rate 76 72 63 Respiratory Rate 16 Blood Pressure 100/48 L Pulse Oximetry 99 01/20/18 04:00 01/20/18 05:00 01/20/18 06:00 Temperature Pulse Rate 63 87 65 Respiratory Rate Blood Pressure Pulse Oximetry 01/20/18 07:00 01/20/18 08:00 Temperature 97.9 F Pulse Rate 60 Respiratory Rate 16 Blood Pressure 123/53 L Pulse Oximetry 93 L 93 L Intake & Output 01/19/18 01/20/18 01/20/18 18:59 06:59 18:59 Intake Total 240 / 240 Output Total 250 / 250 Balance -10 / -10 Intake: Oral 240 / 240 Output: Urine 250 / 250 Narrative: awake and alert, speech slow but clear , oriented x 3, ff all commands, anciteric neck supple no rales regular rhythm abdomen spft good bowel sounds extremities no edema generalized weakness - Urinary Catheter Management Straight Cath placed during this visit: yes Reason for continuing: Not indwelling catheter Insertion date: 01/19/18 Insertion time: 04:38 Results - Labs CBC & Chem 7: 01/20/18 05:51 01/20/18 05:51 Laboratory Results - last 24 hr 01/19/18 01/19/18 01/19/18 10:38 10:38 16:55 WBC RBC Hgb Hct MCV MCH MCHC RDW Plt Count MPV Neut % (Auto) Lymph % (Auto) [place] % (Auto) Eos % (Auto) Baso % (Auto) Neut # (Auto) Lymph # (Auto) [place] # (Auto) Eos # (Auto) Baso # (Auto) WBC Differential Differential Comment APTT 65.0 H D 67.1 H Sodium Potassium Chloride Carbon Dioxide Anion Gap BUN Creatinine Estimated GFR Random Glucose Calcium Total Creatine Kinase 54 Troponin I Less than 0.02 L 01/19/18 01/20/18 01/20/18 16:55 05:51 05:51 WBC 5.0 RBC 3.76 L Hgb 11.3 L Hct 34.5 L MCV 91.7 MCH 30.2 MCHC 32.9 RDW 14.1 Plt Count 180 MPV 7.5 Neut % (Auto) 63.3 Lymph % (Auto) 25.0 [place] % (Auto) 10.6 H Eos % (Auto) 0.5 Baso % (Auto) 0.6 Neut # (Auto) 3.1 Lymph # (Auto) 1.2 [place] # (Auto) 0.5 Eos # (Auto) 0.0 Baso # (Auto) 0.0 WBC Differential . Differential Comment Auto diff final APTT 61.1 H Sodium Potassium Chloride Carbon Dioxide Anion Gap BUN Creatinine Estimated GFR Random Glucose Calcium Total Creatine Kinase Troponin I Less than 0.02 L 01/20/18 05:51 WBC RBC Hgb Hct MCV MCH MCHC RDW Plt Count MPV Neut % (Auto) Lymph % (Auto) [place] % (Auto) Eos % (Auto) Baso % (Auto) Neut # (Auto) Lymph # (Auto) [place] # (Auto) Eos # (Auto) Baso # (Auto) WBC Differential Differential Comment APTT Sodium 140 Potassium 3.8 Chloride 108 H Carbon Dioxide 27.1 Anion Gap 5 BUN 13 Creatinine 0.52 Estimated GFR Greater than 89 Random Glucose 89 Calcium 8.5 Total Creatine Kinase Troponin I Microbiology 01/19/18 04:00 Blood - Peripheral Aerobic Blood Culture - Preliminary No growth in 1 day 01/19/18 04:00 Blood - Peripheral Anaerobic Blood Culture - Preliminary No growth in 1 day 01/19/18 04:00 Blood - Peripheral Aerobic Blood Culture - Preliminary No growth in 1 day 01/19/18 04:00 Blood - Peripheral Anaerobic Blood Culture - Preliminary No growth in 1 day - Imaging Impressions Venous Doppler Study 01/19/18 00:00 CONCLUSION: 1. No evidence of DVT. Assessment and Plan - Assessment (1) Chest pain Code(s): R07.9 - Chest pain, unspecified Status: Acute (2) ST segment changes on electrocardiogram Code(s): R94.31 - Abnormal electrocardiogram [ECG] [EKG] Status: Acute (3) Dysarthria Code(s): R47.1 - Dysarthria and anarthria Status: Acute (4) Pleuritic chest pain Code(s): R07.81 - Pleurodynia Status: Acute - Plan 87 years old Chest pain r/o Unstable angina Chest pain appears to be pleuritic in nature, left-sided with elevated d-dimer concerning for possible pulmonary embolism. Will obtain lower externally Doppler ultrasound to rule out DVT Continue to trend troponin every 4-6 hours x3. Initial troponin negative Cardiology- plan to do [facility] Continue heparin drip and monitor PTT until therapeutic Continue aspirin 325 mg daily, metoprolol 12.5 mg p.o. twice daily when tolerating p.o. Morphine as needed pain. Titrate oxygen to maintain O2 saturation greater than 92% Chest x-ray reviewed and negative for acute pathology including pneumonia. EKG as needed chest pain Urinary tract infection Continue ceftriaxone Telemetry antibiotics based on urinary culture results- still pending Patient CARE: - per nephew at bedside- was eating regular food at home - till she was chas to a NH- and was given pureed-started losing weight Speech language pathology evaluation- rec. mechanical soft diet -. Power of county attorney reports patient had previously taken thickened liquids Physical therapy evaluation Monitor patient as she may be a fall risk - get dietitian consult CODE STATUS: Full code DVT prophylaxis: Heparin drip Disposition: Patient currently in route to [facility]. Patient briefly evaluated prior to transfer Diet: N.p.o. until evaluated by speech Plan of care discussed with patient and power of county attorney at the bedside Nohemy Cisneros. Phone number [phone]
[2018-01-20] MEDS: Olopatadine 0.1% Opth Drops 5 ML Bottle EACH EYE SCH ×2 (13:23→21:04)
[2018-01-20] MEDS: Heparin Drip 25,000 UNIT/250 ML BAG IV.CONT PRN (13:23)
[2018-01-20] MEDS ORDERED: Bisacodyl 10 MG Supp RECTAL PRN (13:39)
[2018-01-21 08:01] LABS: Hematocrit 33.9 % (35.0-46.0); Hemoglobin 11.6 gm/dL (11.6-15.3); Mean Corpuscular HGB Conc 34.1 % (32.0-36.0); Mean Corpuscular Hemoglobin 30.8 pg (27.0-34.0); Mean Corpuscular Volume 90.4 fL (80.0-100.0); Mean Platelet Volume 8.4 fL (7.0-11.0); Platelet Count 193 th/mm3 (150-450); Red Blood Count 3.75 mil/mm3 (4.00-5.30); White Blood Count 3.7 th/mm3 (4.0-11.0)
[2018-01-21] MEDS: Aspirin 325 MG Tablet PO SCH (08:26)
[2018-01-21] MEDS: Olopatadine 0.1% Opth Drops 5 ML Bottle EACH EYE SCH ×2 (08:28→21:31)
--- NOTE | 2018-01-21 10:25 | P.PN ---
Subjective Interval history: awake and alert speech slow but clear- states night was "alright" no pain ff all commands states she uses a walker at home Physical Exam Vital signs: Vital Signs 01/20/18 11:00 01/20/18 11:50 01/20/18 12:00 Temperature 98.0 F Pulse Rate 63 68 Respiratory Rate 16 Blood Pressure 117/58 L Pulse Oximetry 98 95 01/20/18 13:00 01/20/18 14:00 01/20/18 15:00 Temperature 98.9 F Pulse Rate 68 64 66 Respiratory Rate 16 Blood Pressure 128/64 Pulse Oximetry 97 01/20/18 16:00 01/20/18 17:00 01/20/18 18:00 Temperature Pulse Rate 72 76 72 Respiratory Rate Blood Pressure Pulse Oximetry 01/20/18 19:00 01/20/18 20:00 01/20/18 21:00 Temperature 98.6 F Pulse Rate 69 72 72 Respiratory Rate 16 Blood Pressure 118/54 L Pulse Oximetry 99 01/20/18 22:00 01/20/18 23:00 01/21/18 00:00 Temperature 98.1 F Pulse Rate 68 67 74 Respiratory Rate 16 Blood Pressure 128/58 L Pulse Oximetry 97 01/21/18 01:00 01/21/18 02:00 01/21/18 03:00 Temperature 98.0 F Pulse Rate 66 66 70 Respiratory Rate 16 Blood Pressure 116/58 L Pulse Oximetry 95 01/21/18 04:00 01/21/18 05:00 01/21/18 06:00 Temperature Pulse Rate 74 82 70 Respiratory Rate Blood Pressure Pulse Oximetry 01/21/18 07:00 01/21/18 08:00 01/21/18 08:18 Temperature 99.4 F Pulse Rate 77 70 73 Respiratory Rate 18 Blood Pressure 121/73 Pulse Oximetry 95 01/21/18 09:00 01/21/18 10:22 Temperature Pulse Rate 70 Respiratory Rate Blood Pressure Pulse Oximetry 95 Intake & Output 01/20/18 01/21/18 01/21/18 18:59 06:59 18:59 Intake Total 830 / 830 360 / 360 Output Total 500 / 500 200 / 200 Balance 330 / 330 160 / 160 Weight 61.1 kg Intake: IV 350 / 350 Heparin/D5W 25,000 U/250 mL 25, 250 / 250 000 unit In 250 ml @ Per Protocol IV.CONT TITRATE PRN Rx #:[id number] Rocephin Inj 1,000 MG In NS Inj 100 / 100 100 ML @ 200 mls/hr IV.SIG Q24H BONIFACIO Rx#:[id number] Oral 480 / 480 360 / 360 Output: Urine 500 / 500 200 / 200 Other: Date of Last Bowel Movement 01/20/18 Narrative: awake and alert, speech slow but clear , oriented x 3, ff all commands, anicteric neck supple no rales regular rhythm abdomen spft good bowel sounds extremities no edema generalized weakness- moves all extremities spontaenously, some essential tremors - Urinary Catheter Management Straight Cath placed during this visit: yes Reason for continuing: Not indwelling catheter Insertion date: 01/19/18 Insertion time: 04:38 Results - Labs CBC & Chem 7: 01/21/18 06:37 01/20/18 05:51 Laboratory Results - last 24 hr 01/21/18 01/21/18 06:37 06:37 WBC 3.7 L RBC 3.75 L Hgb 11.6 Hct 33.9 L MCV 90.4 MCH 30.8 MCHC 34.1 RDW 14.0 Plt Count 193 MPV 8.4 APTT 51.6 H Microbiology 01/19/18 04:29 Catheterized Urine Urine Culture - Final Aerococcus urinae 01/20/18 22:21 Stool Stool Occult Blood (FRANSISCO) - Final Hemoccult negative 01/19/18 04:00 Blood - Peripheral Aerobic Blood Culture - Preliminary No growth in 1 day 01/19/18 04:00 Blood - Peripheral Anaerobic Blood Culture - Preliminary No growth in 1 day 01/19/18 04:00 Blood - Peripheral Aerobic Blood Culture - Preliminary No growth in 1 day 01/19/18 04:00 Blood - Peripheral Anaerobic Blood Culture - Preliminary No growth in 1 day Assessment and Plan - Assessment (1) Chest pain Code(s): R07.9 - Chest pain, unspecified Status: Acute (2) ST segment changes on electrocardiogram Code(s): R94.31 - Abnormal electrocardiogram [ECG] [EKG] Status: Acute (3) Dysarthria Code(s): R47.1 - Dysarthria and anarthria Status: Acute (4) Pleuritic chest pain Code(s): R07.81 - Pleurodynia Status: Acute - Plan 87 years old Chest pain r/o Unstable angina - for cardiac cath today Chest pain appears to be pleuritic in nature, left-sided with elevated d-dimer concerning for possible pulmonary embolism. - Doppler US legs- negative for DVT- for cath today- if negative - poceed with CTA or VQ scan to rule PE Continue heparin drip and monitor PTT until therapeutic Continue aspirin 325 mg daily, metoprolol 12.5 mg p.o. twice daily when tolerating p.o. Morphine as needed pain. Titrate oxygen to maintain O2 saturation greater than 92% Chest x-ray reviewed and negative for acute pathology including pneumonia. EKG as needed chest pain - currently on heparin drip- - continue with current therapy Urinary tract infection Continue ceftriaxone Telemetry antibiotics based on urinary culture results- still pending Patient CARE: - per nephew at bedside- was eating regular food at home - till she was chas to a NH- and was given pureed-started losing weight Speech language pathology evaluation- rec. mechanical soft diet -. Power of regulatory attorney reports patient had previously taken thickened liquids Physical therapy evaluation Monitor patient as she may be a fall risk - get dietitian consult CODE STATUS: Full code DVT prophylaxis: Heparin drip Disposition: Patient currently in route to [facility]. Patient briefly evaluated prior to transfer Diet: N.p.o. until evaluated by speech Plan of care discussed with patient and power of regulatory attorney at the bedside Mr. Vásquez Phone number [phone]
[2018-01-21] MEDS ORDERED: Heparin/NS PF Inj 1,000 ML ONE (12:26)
[2018-01-21] MEDS ORDERED: Lidocaine PF 1% Inj 30 ML Vial ONE ×2 (12:26→12:33)
--- NOTE | 2018-01-21 13:19 | CATHPROC ---
[facility] HIS Report Study Information Study Number Admission Scheduled Start Study Start [id number] Jan 19 2018 4:52AM 01/21/2018 Jan 21 2018 11:57AM [facility] Cardiac Catheterization Admit Source Facility Department Emergency department [facility] - Sap Bw Developer Physician and Clinical Staff Initial Tushar Morejon Supervising Law Enforcement Analyst Manav Stauffer,JOAN Recorder Cedrick Mahoney,RT(R) Scrub Magdalene Gottlieb,BRENDA TECH2 Procedures Performed Procedure Location (Site) Vessel Name Coronary Angiograms LCA Left Coronary Coronary Angiograms RCA Right Coronary L Heart Cath Equipment Time Novelties Sales Representative Description Size Mfg Part Number Used/Scraped TRANSDUCER, TRUWAVE [id number] 12:00 SOTO OJEDA * Used W/STOCKCOCK *[id number] *[id number] *[id number] 12:00 [employer] BLANKET,WARM AIR CCL * Used *[id number] 12:00 [employer] PACK, CCL CUSTOM * Used *[id number] 12:00 Backyard PACER PEN, SKIN DUAL W/ RULER * Used *[id number] 12:00 [employer] WIRE, 3MMJ .035 180CM 180CM Used *[id number] 12:00 NAMZodio MANIFOLD, 4 PORT * Used *[id number] 12:00 NYCOMED OMNIPAQUE, 350 MG, 150ML 150ML [id number] 12:00 Outfittery MEDICAL SHEATH, FR4 TERUMO (10CM) FR 4 Used *[id number] History: Current Medications Medication Dosage/Unit Route Frequency Last Date/Time Taken ASA LOPRESSOR NTG SL History: Allergies Allergy Reaction No Known Allergies History: Risk Factors Family History of Hypertension Dyslipidemia Previous NE Previous Heart Failure Premature CAD Yes No No No No Prior Valve Prior PCI Prior CABG Surgery No No No Cerebrovascular Peripheral Artery Chronic Lung On Dialysis Diabetes Disease Disease Disease No No No No No History: Symptoms/Diagnosis Selection Items Chest pain History: Stress Tests Stress or Imaging Studies Performed No History: Arrhythmias Selection Items Ventricular History: Other Disease Selection Items HTN History: Other Current Smoker No Labs Hgb (g/dl) Hct (%) RBC (MIL/MM3) WBC (l/cumm) Platelets (thousands) 11.60-17.00 35.00-51.00 4.00-5.90 4.00-11.00 150.00-450.00 11.6 33.9 3.7 3.7 193 Glucose (mg/dl) BUN (mg/dl) Creatinine (mg/dl) BUN:Creatinine (1:x) 74.00-106.00 7.00-18.00 0.50-1.30 10.00-20.00 101 15 0.5 30 Na (meq/l) K (meq/l) Cl (meq/l) CO2 (mmol/L) Ca (mg/dl) 136.00-145.00 3.50-5.10 98.00-107.00 21.00-32.00 8.50-10.10 141 4 107 29 8.6 PT (sec) PTT (sec) INR (PTT:PT) 9.80-11.60 24.30-30.10 0.90-1.10 10.2 65 1 Troponin I (ng/ml) CPK (u/l) CPK-MB (ng/ML) 0.02-0.05 26.00-308.00 0.50-3.60 0.02 54 Not Drawn Medication Medication Total Dose (Bolus/Oral) Medication Total Dosage/Unit 1% XYLOCAINE 20 mL Medications (Bolus/Oral) Medication Time Given Dosage/Unit Administered By Reason 1% XYLOCAINE 01/21/2018 12:47:53 PM 20 mL Manav Stauffer 20 mL 1% XYLOCAINE given in lab by Manav Stauffer, RN in Right Groin via Subcutaneous. Medication (Drip) Medication Time Given Dosage/Unit Concentration/Unit Diluent (ml) Solution IV Solutions 01/21/2018 12:05:04 PM 0 mL (IV) 500 NaCl .9 IV Solutions given in lab by Manav Stauffer, RN in Left Hand via Peripheral IV. Pump/Drip Flow = 20 m l/hr using NaCl .9. Initial Case Assessment Cardiovascular HR Rhythm NIBP Chest Pain 64 Sinus 118/59 0 Edema Present Skin color Skin None Normal Warm Dry Circulatory - Right Pulses Dorsalis Pedis Femoral 2 2 Scale (0,1,2,3,4,d) Circulatory - Left Pulses Dorsalis Pedis Femoral 2 2 Scale (0,1,2,3,4,d) Neurological State Oriented to time-place- Alert Moves all extremities person Respiration - General Respiration Rate SpO2 (%) O2 (lpm) (B/min) 6 96 0 Final Case Assessment Cardiovascular HR Rhythm NIBP Chest Pain 72 Sinus 125/63 0 Edema Present Skin color Skin None Normal Warm Dry Circulatory - Right Pulses Dorsalis Pedis Femoral 2 2 Scale (0,1,2,3,4,d) Circulatory - Left Pulses Dorsalis Pedis Femoral 2 2 Scale (0,1,2,3,4,d) Neurological State Oriented to time-place- Alert Moves all extremities person Respiration - General Respiration Rate SpO2 (%) O2 (lpm) (B/min) 17 95 0 Chronological Log Time Study Chronological Log 12:04:40 Patient arrived via Bed. 12:04:41 Patient Name, D.O.B, / Armband Verified By R.N. 12:04:42 Consent signed by the physician and the patient and verified by the Sap Bw Developer staff. 12:04:45 Pre-op and post- op instructions given; patient acknowledges understanding of instructions. 12:04:46 Verbal Stimulation=2 Physical Stimulation=2 Airway=2 Respiration=2 TOTAL=8. (0=absent, 1=li mited, 2=present) 12:04:51 Patient has been NPO for More than 6Hrs. 12:04:58 Skin Breakdown- none per patient. 12:04:59 Patient Warmer Placed on the Table. 12:05:00 Carlton Prominences Protected 12:05:02 A # 20 IV was noted in the Hand (left). Grade = 0 12:05:04 IV Solutions given in lab by Manav Stauffer RN in Left Hand via Peripheral IV. Pump/Drip F low = 20 ml/hr using NaCl .9. 12:05:05 History and physical on the chart or being dictated. 12:11:32 A # 20 IV was noted in the Wrist (right). Grade = 0 Assessment: Initial Case, HR=64 BPM, Rhythm=Sinus, VNIB=507/59 mmhg, Chest Pain=0, Edema=None, Color=Normal, Skin = Warm, Dry Right Pulses: Carl Ped=2, Femoral=2 12:12:14 Left Pulses: Carl Ped=2, Femoral=2 Neurological: State=Alert, Ox3, LOPEZ Respiration: Resp=6 B/min, SpO2=96 %, O2=0 lpm Vitals capture started with the following parameters, Patient=Adult, Interval=5 min, Initial Pr ilzzjm=583 mmHg, 12:12:35 Deflation Rate=5 mmHg, Cuff placed on Left Arm 12:13:08 Reference ECG taken 12:13:11 HR=62 bpm, BCCV=295/59 mmhg, SpO2=97.0 %, Resp=3 B/min, Pain=0, Estelle=8, Miguel=2 12:18:10 HR=64 bpm, LUFM=738/59 mmhg, SpO2=95.0 %, Resp=15 B/min, Pain=0, Estelle=8, Miguel=2 12:23:48 HR=60 bpm, OAUB=171/63 mmhg, SpO2=98.0 %, Resp=12 B/min, Pain=0, Estelle=8, Miguel=2 12:25:20 Bilateral groins prepped with 2% chlorhexidine, and draped after a 3 minute waiting time. 12:28:14 HR=63 bpm, EHYL=475/57 mmhg, SpO2=97.0 %, Resp=14 B/min, Pain=0, Estelle=8, Miguel=2 12:29:59 Pressure channel 1 zeroed. 12:32:58 MD paged 12:33:11 HR=64 bpm, UNGP=575/57 mmhg, SpO2=95.0 %, Resp=16 B/min, Pain=0, Estelle=8, Miguel=2 12:37:32 MD arrived. 12:38:10 HR=59 bpm, ORLM=220/53 mmhg, SpO2=94.0 %, Resp=15 B/min, Pain=0, Estelle=8, Miguel=2 12:43:09 HR=64 bpm, PYXO=028/58 mmhg, SpO2=95.0 %, Resp=16 B/min, Pain=0, Estelle=8, Miguel=2 Time Out. Correct patient, correct procedure, correct physician, labs, allergies, and equipment verified with agriculture laboratory technician 12:47:48 team present. Fire risk assesment completed (see hard stop sheet for coding). Time Out Conc urred by MD and individual staff in procedure. 12:47:52 Case Start 12:47:53 20 mL 1% XYLOCAINE given in lab by Manav Stauffer RN in Right Groin via Subcutaneous. 12:48:12 HR=62 bpm, RXPM=526/58 mmhg, SpO2=95.0 %, Resp=16 B/min, Pain=0, Estelle=8, Miguel=2 12:48:31 Access site was Right Femoral Artery. 12:48:40 A SHEATH, FR4 TERUMO (10CM) FR 4 was advanced into the Fem Art (right) using the Percutaneo us technique. 12:49:27 Activated Clotting Time Drawn A JR 4.0 INFINITI CATHETER FR 4 was advanced over a wire. OMNIPAQUE, 350 MG, 150ML 150ML was us ed for 12:49:37 injections. Recorded Pressure: LV, HR=73, Condition=Condition 1 12:50:11 (Left Ventricle) LV 124/1/9 Recorded Pressure: LV, Ao, HR=74, Condition=Condition 1 12:50:19 (Left Ventricle) LV ?/?/?, (Aorta) Ao 102/42/69 12:51:11 The RCA was injected and visualized at various angles. OMNIPAQUE, 350 MG, 150ML 150ML used . 12:51:20 Catheter was removed A JL 4.0 INFINITI CATHETER FR 4 was advanced over a wire. OMNIPAQUE, 350 MG, 150ML 150ML was us ed for 12:51:38 injections. Recorded Pressure: Ao, HR=67, Condition=Condition 1 12:51:59 (Aorta) Ao 110/46/71 12:52:10 The LCA was injected and visualized at various angles. OMNIPAQUE, 350 MG, 150ML 150ML used . 12:52:17 ACT (Normal Range 90-180) = 148 12:52:59 Catheter was removed 12:53:12 HR=70 bpm, VFGV=461/60 mmhg, SpO2=94.0 %, Resp=18 B/min, Pain=0, Estelle=8, Miguel=2 12:53:15 Case End (Physician broke scrub) 12:55:06 Sheath removed; pressure applied to access site. 12:55:29 No case complications noted. 12:55:33 Cine recording checked. 12:56:24 A Left Heart Cath was performed. 12:58:13 HR=70 bpm, NEST=141/63 mmhg, SpO2=94.0 %, Resp=16 B/min, Pain=0, Estelle=8, Miguel=2 12:58:33 Bedside Report will be given. Assessment: Final Case, HR=72 BPM, Rhythm=Sinus, CNZA=660/63 mmhg, Chest Pain=0, Edema=None, Color=Normal, Skin = Warm, Dry Right Pulses: Carl Ped=2, Femoral=2 12:58:42 Left Pulses: Carl Ped=2, Femoral=2 Neurological: State=Alert, Ox3, LOPEZ Respiration: Resp=17 B/min, SpO2=95 %, O2=0 lpm 13:01:55 Patient moved to stretcher 13:03:18 HR=68 bpm, EXRV=548/59 mmhg, SpO2=94.0 %, Resp=17 B/min, Pain=0, Estelle=8, Miguel=2 13:08:17 HR=73 bpm, ZXSQ=153/62 mmhg, SpO2=96.0 %, Resp=17 B/min 13:10:54 Patient moved to stretcher 13:13:20 Vitals capture stopped. End Study - Contrast Media Used In Study Contrast Total Opened (mL) Total Used (mL) Total Wasted (mL) Omnipaque 350 150 30 120 End Study - Maximum Contrast Load Max Contrast Load (mL) 610.9 End Study - Radiation Exposure Fluoro Time (minutes) 1.1 End Study - Patient Disposition Complications Transferred To Interventional Outcome No Telemetry Bed No attempt made
--- NOTE | 2018-01-21 13:25 | MR ---
cc: Tushar Carmona MD DATE: 01/21/2018 LEFT HEAR CATHETERIZATION, LEFT VENTRICULOGRAPHY, CORONARY ANGIOGRAPHY INDICATIONS: Unstable angina, Citizen Of [place] Cardiovascular Society class IV angina, coronary artery disease. PROCEDURE: The patient was brought to the cardiac catheterization laboratory, prepped and draped in the usual sterile fashion; 10 mL of 1% lidocaine was used to locally anesthetize the right common femoral artery. A 4-Romanian sheath was placed in right common femoral artery; 4-Romanian JL4 and JL 5 catheters were used for to perform left and right coronary angiography, left ventriculography. FINDINGS: LV pressure is 120/3-4; ejection fraction is 65%. Right coronary artery is dominant, has no significant obstructive disease angiographically. Left main coronary artery has no significant disease angiographically. The LAD is transapical; mild disease to the ostial proximal segment up to 20% angiographically. There is fibrocalcification in the proximal segment fluoroscopically. First diagonal artery is a small to medium size vessel, which has a proximal bifurcation. There is mild ostial disease up to 10% angiographically. The more medial branches of the bifurcation is a 2.0 mm reference vessel diameter with an ostial proximal 30-40% stenosis. There is a large ramus intermedius vessel, which was a reference vessel of probably 3.5 mm with no significant disease angiographically. Left circumflex vessel is a relatively small vessel, giving off to 1.75 mm - 2 mm distal posterolateral arteries with no significant disease angiographically. Also note, the LAD is transapical and supplies a distal inferoapical wall. CONCLUSION: 1. Angiographically mild 2-vessel coronary artery disease and right dominant system as detailed above. 2. Normal left ventricular systolic function with ejection fraction 65%. 3. Recommend medical management of coronary artery disease and cardiac risk factor modification. MD THOMAS Myers/[place] , 01:01 PM , 01:07 PM
[2018-01-21] MEDS ORDERED: Iohexol 350 MG/ML 50 ML Vial (for Cath Lab) IVCONTRAST ONE ×2 (13:43→14:33)
--- NOTE | 2018-01-21 14:33 | ECG ---
Date Performed: 01/19/2018 Time Performed: 09:48:38 PTAGE: 87 years EKG: Sinus bradycardia Lead(s) unsuitable for analysis: I III aVL --- Suspect limb lead reversal - only V1-V6 analyzed --- Since the PREVIOUS TRACING , no significant change noted Normal ECG except for rate PREVIOUS TRACIN 01/19/2018 03.48 DOCTOR: Kwaku Iyer Interpretating Date/Time 01/21/2018 14:32:07
--- NOTE | 2018-01-21 14:33 | ECG ---
Date Performed: 01/19/2018 Time Performed: 03:48:48 PTAGE: 87 years EKG: Sinus rhythm POSSIBLE LEFT ATRIAL ENLARGEMENT RIGHT BUNDLE BRANCH BLOCK LEFT ANTERIOR FASCICULAR BLOCK ABNORMAL E CG Since the PREVIOUS TRACING , no significant change noted DOCTOR: Kwaku Iyer Interpretating Date/Time 01/21/2018 14:31:48
--- NOTE | 2018-01-21 15:07 | P.DIET ---
Nutritional Evaluation Type of nutrition evaluation: initial Nutrition consult regarding: Diet Evaluation Nutrition screening: Poor PO Intake Objective - Diagnosis chest pain r/o ACS - Objective Body Mass Index: 21.1 % IBW: 99 (IBW = 135) Body Weight Used for Calculations: Actual Energy Needs - Lower Range (kCal/kg): 25 Energy Needs - Upper Range (kCal/kg): 30 Lower Limit kCal/kg (kCals): 1,540 Upper Limit kCal/kg (kCals): 1,833 Lower Limit Protein Factor (Grams per Kg): 1.1 Upper Limit Protein Factor (Grams per Kg): 1.3 Lower Protein Needs (Protein): 67 Upper Protein Needs (Protein): 79 Dietitian Reviewed in Medical Record: Current diet, Curent medications, Intake & Output, Labs, Medical history Diet Order: NPO Oral Diet Intake Amount: Poor <50% Speech Therapy Recommendations: Yes (mechanical soft, nectar thick) Assessment Assessment: Pt currently at nutritional risk r/t poor PO intake. Pt currently NPO d/t L heart cath procedure today (01/21). ST recs noted, pt able to eat mechanical soft w/ nectar thick liquids. Pt had a variable PO before procedure, consuming around 25-75% of most meals. Will continue to assess nutritional needs for a PO supplement. Encourage PO intake and give feed assistance as necessary. Continue to monitor PO intake. Labs reviewed, dietitian following. Recommendations: 1. Will continue to assess nutritional needs for a PO supplement 2. Encourage PO intake and give feed assistance as necessary 3. Continue to monitor PO intake 4. Dietitian following Dietitian to Monitor: Lab values, Intake & Output, Diet tolerance, Weight change , PO Intake, Diet advancement, Swallow recommendations, Medical course
[2018-01-22 05:26] LABS: Hematocrit 35.3 % (35.0-46.0); Hemoglobin 11.7 gm/dL (11.6-15.3); Mean Corpuscular HGB Conc 33.2 % (32.0-36.0); Mean Corpuscular Hemoglobin 30.4 pg (27.0-34.0); Mean Corpuscular Volume 91.7 fL (80.0-100.0); Mean Platelet Volume 7.7 fL (7.0-11.0); Platelet Count 207 th/mm3 (150-450); Red Blood Count 3.85 mil/mm3 (4.00-5.30); Red Cell Distribution Width 13.8 % (11.6-17.2); White Blood Count 2.7 th/mm3 (4.0-11.0)
[2018-01-22 08:34] VITALS: RESP 18
[2018-01-22] MEDS: Aspirin 325 MG Tablet PO SCH (08:35)
[2018-01-22] MEDS: Olopatadine 0.1% Opth Drops 5 ML Bottle EACH EYE SCH (08:36)
[2018-01-22 11:06] VITALS: BP 133/70; PULSE 70; TEMP 98.5; O2SAT 97
--- NOTE | 2018-01-22 11:20 | P.DS ---
DS: Providers Date of admission: 01/19/18 04:52 Primary care physician: UNKNOWN Consults: 01/19/18 05:03 Consult to Cardiology Routine Consulting Provider: Tushar Carmona Does the patient have a Side Stitcher who follows them?: No Preferred [employer] Manager:: Postdoctoral Scholar Physician Reason for Consultation: Case discussed between Dr. Carmona and ED physician re: abnl EKG Spoke with:: ADDED TO LIST - CALL IN AM Date Notified:: 01/19/18 Time Notified:: 06:29 Comments:: WILL HAVE DAYSHIFT GIVE COURTESY CALL Ordering Provider: SANTA DS: Diagnosis Discharge Diagnosis (1) Chest pain: Status: Acute (2) ST segment changes on electrocardiogram: Status: Acute (3) Dysarthria: Status: Acute (4) Pleuritic chest pain: Status: Acute DS: Summary Mrs. Marmolejo is an 87-year-old female. She came in secondary to chest pain. ACS workup was provided which included heart cath. Her cath shows diffuse disease but no focal defect requiring stenting. Medical management recommended. Patient was discharged on metoprolol, aspirin, statin. Urinary tract infection was also found and she will be discharged on 4 more days of Cefdinir with a probiotic. Medically stable and cleared for discharge home today. Time Spent with Patient Total time spent providing and/or coordinating discharge services: Quality: VTE Deep Vein Thrombosis/Pulmonary Embolism Present on Admission: No Results Labs on day of discharge: Labs from last 24 hours 01/22/18 01/22/18 04:17 04:17 WBC 2.7 L RBC 3.85 L Hgb 11.7 Hct 35.3 MCV 91.7 MCH 30.4 MCHC 33.2 RDW 13.8 Plt Count 207 MPV 7.7 APTT 31.6 D Preliminary micro results at discharge 01/19/18 04:00 Aerobic Blood Culture - Preliminary Blood - Peripheral No growth in 3 days Anaerobic Blood Culture - Preliminary No growth in 3 days 01/19/18 04:00 Aerobic Blood Culture - Preliminary Blood - Peripheral No growth in 3 days Anaerobic Blood Culture - Preliminary No growth in 3 days Impressions ITS Impressions Venous Doppler Study 01/19/18 00:00 CONCLUSION: 1. No evidence of DVT. Chest X-Ray 01/19/18 03:28 CONCLUSION: No acute cardiopulmonary abnormality is identified. Discharge Plan Discharge Order Discharge Orders: Discharge Order (Routine); Ordered 01/22/18 Ordered By: Vinod Duarte Discharge Details Anticipated Discharge Date: 01/22/18 Physicians Team ED Provider: Nora Cantu Primary Care Provider: UNKNOWN, Attending Provider: Vinod Duarte Other Providers: Tushar Carmona Rxs /Orders / Referrals /Forms Prescriptions: New Lactobacillus acidophilus Capsule 500 mmu cells PO TID Qty: 14 RF: 0 cefdinir 300 mg capsule 300 mg PO BID 4 Days Qty: 8 RF: 0 atorvastatin [Lipitor] 10 mg tablet 10 mg PO DAILY Qty: 30 RF: 0 Continue sennosides [Senexon] 8.6 mg Tablet 8.6 mg PO BID RF: 0 aspirin 81 mg Tablet,Chewable 81 mg PO DAILY RF: 0 metoprolol succinate 25 mg Tablet Extended Release 24 Hr 12.5 mg PO BID RF: 0 olopatadine 0.1 % Drops 1 drp OPHTHALMIC (EYE) BID RF: 0 Discharge Interventions Interventions: Discharge Planning - Case Management Last Done: 01/22/18 10:32 Status ED Status: Left Department
--- NOTE | 2018-01-22 11:59 | P.DCO ---
Physical Therapy Order: Evaluate and treat, Improve ambulation and Strength and gait training Home Health Nursing Order: Medical education and Signs/symptoms of disease process Case Management Consult Case Management Consult-Home Health: Yes I have seen patient Adeola Marmolejo on 01/22/18. My clinical findings support the need for the requested home health care services because: Limited mobility due to disease progression, Deconditioned with increased weakness and Limited ability to care for self I certify that my clinical findings support that this patient is homebound because: Unsteady gait/balance, Unsafe to leave home unassisted and Unable to use public transportation
== END 2018-01-22 13:54 | disposition home health service (06) ==
LOC: PHED 03:09 → PHEDA 04:52 → HCIS 09:05
PROVIDERS: ADMIT Hospitalist; ATTEND Hospitalist
DX: G25.0 Essential tremor; I45.2 Bifascicular block; R29.810 Facial weakness; I25.110 Atherosclerotic heart disease of native coronary artery with unstable angina pectoris; R00.1 Bradycardia, unspecified; Z91.030 Bee allergy status; I95.9 Hypotension, unspecified; R54 Age-related physical debility; Z96.642 Presence of left artificial hip joint; Z87.891 Personal history of nicotine dependence; N39.0 Urinary tract infection, site not specified; R47.1 Dysarthria and anarthria